=== PATIENT | male | born 1945 | race Caucasian/White ===

== ENCOUNTER 2021-06-14 08:21 | Outpatient (REF) | payer MEDICARE, SELFPAY ==
--- NOTE | 2021-06-14 09:17 | MHC.AU.ANR ---
Adult Audiological Evaluation Date of Visit: 06/14/21 Reason for Appointment: Audiological evaluation due to concerns for decreased hearing. Steve reports difficulties hearing over the past couple years, particularly in the right ear. 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 He states that he did not typically use hearing protection. He notes difficulties hearing when someone speaks in a whisper and when watching TV. Steve denies tinnitus, recent ear pain, and vertigo. Does patient feel they have a hearing loss?: Yes If Yes, Which Ear?: Right Ear When Was Hearing Difficulty First Noticed?: Gradually over the past couple years Has hearing been tested previously?: No Hearing Handicap Inventory: HHIE SCORE: 10 Based on HHIE score, patient has: Mild to moderate perceived hearing handicap Ear History: Family History of Hearing Loss?: Yes: Father History of Ear Wax Buildup: Both Ears History of occupational noise exposure?: Yes, Martínez, 50 years Medical History: Medical History: High Blood Pressure, Tobacco Use, Diverticulitis 2000, Abdominal adhesion 2014, Abdominal aortic aneurysm 2017, Cataract surgery 2019 Allergies: Calamari, radish, asa'[place] in beer Medication List: Amlodipine besylate, finasteride, lisinopril, atorvastatin, metformin, Preservision gel Otoscopy: Right Ear: Unremarkable Left Ear: Unremarkable Tympanometry: Tympanometry performed due to: Conductive component found in audiometric results Right Ear: Normal Middle Ear System (Type A) Left Ear: Normal Middle Ear System (Type A) Hearing Evaluation: Transducer(s) Used: Insert Earphones, Bone Conduction Method: Conventional Audiometry Stimuli Used: Pure Tones Right Ear: Description of Hearing: Normal hearing from 250-750 Hz, sloping to a mild to severe sensorineural hearing loss from 2869-6567 Hz. Hearing in the right ear is worse than the left by 15-25 dBHL from 5194-0896 Hz. Left Ear: Description of Hearing: Mild conductive hearing loss 250-500 Hz, rising to normal hearing from 750-1500 Hz, then sloping to a mild to severe sensorineural hearing loss from 5377-9815 Hz. Speech Recognition Threshold (SRT): Method Used: Monitored Live Voice Stimuli Used: Spondee Words Right Ear: 25 dBHL Left Ear: 25 dBHL Word Discrimination: Method: Recorded Lists Word Lists Used: NU-6 Right Ear: 84% at 75 dBHL Left Ear: 96% 75 dBHL Interpretation of Results: Asymmetrical, mild to severe, sensorineural hearing loss with the right ear hearing worse than the left. A mild, low-frequency, conductive component is noted in the left ear. Recommendations: Audiological re-evaluation in one year. Hearing protection should be used when around loud noise. Referral to ENT is highly recommended due to asymmetrical sensorineural hearing loss. Based on degree of hearing loss, use of hearing aids in both ears is recommended, pending medical clearance. Discussed hearing aid use briefly. Recommend Steve contact his health insurance company to determine if he has any hearing aid coverage. He was welcomed to return for further discussion if he decides he would like to pursue hearing aids through out clinic. Diagnosis: Primary Diagnosis: H90.3 Bilateral Sensorineural Hearing Loss Services Performed: Services Performed: Comprehensive Audiological Evaluation (CPT 12239) Tympanometry (CPT 37011) Signature: Provider: Babatunde Darling, CCC-A
== END 2021-06-14 08:22 | disposition home or self-care (01) ==
LOC: HO.SH 08:21
PROVIDERS: Visit Provider Family Medicine
DX: Z01.118 Encounter for examination of ears and hearing with other abnormal findings (principal); H90.3 Sensorineural hearing loss, bilateral
CPT/HCPCS: 92557; 92567